=== PATIENT | female | born 1955 | race Caucasian/White ===

== ENCOUNTER 2016-08-03 09:53 | Observation (INO) | payer OTHER ==
[2016-08-03] VITALS (9 sets, daily range): BP systolic 109–188; BP diastolic 77–115; PULSE 75–113; RESP 18–20; TEMP 98–98.8; O2SAT 95–98
[~2016-08-03] VITALS: Ht 152.4 cm; Wt 52.0 kg
[~2016-08-03 09:53] MED LIST: ALPR-138 PO; ENAL20TA81; HYDR12.56; LORT5TAB PO; LOVA10TA
[2016-08-03] MEDS ORDERED: HYDR12.57 PO (10:11)
[2016-08-03] MEDS ORDERED: BENA40TA PO (10:11)
[2016-08-03] MEDS ORDERED: CHOLESTEROL MED PO (10:11)
[2016-08-03] MEDS ORDERED: ALPR.25 PO (10:11)
[2016-08-03] MEDS ORDERED: SODIUM CHLORIDE 0.9% FLUSH 5 ML FLUSH IVF PRN (10:15)
[2016-08-03] MEDS ORDERED: NITROGLYCERIN 0.4 MG SL 25 TABS/BTL SL ONE (10:15)
[2016-08-03] MEDS ORDERED: ASPIRIN 81 MG CHEW TAB PO ONE (10:15)
--- NOTE | 2016-08-03 10:34 | PD ---
HPI Chief Complaint: Chest Pain Time Seen by Provider: 09:59 Travel History International Travel<30 days: No Contact w/Intl Traveler<30days: No Traveled to known affect area: No History of Present Illness HPI 61-year-old woman who presents to the emergency department complaining of chest heaviness. States that for the past several days she's had chest tightness and heaviness. She had similar pain in her back before that occasionally radiated around to the chest but she's never had the pain in her chest. Symptoms were coming and going initially but have been constant throughout the day today. They are somewhat worse with exertion but not predictably. She states that she was helping an elderly neighbor over the weekend and was pushing her and thinks that this may have triggered it. No shortness of breath. She otherwise has been feeling well and healthy. She has a history of hypertension and hyperlipidemia. She does have a family history of heart disease. 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 History Past Medical History Narrative Medical Hypertension Hyperlipidemia Anxiety Tetanus Vaccination: Unknown Influenza Vaccination: Yes Menopausal: Yes Para: 3 Social History Alcohol Use: No Tobacco Use: No Allergies-Medications (Allergen,Severity, Reaction): Coded Allergies: No Known Allergies (Verified , 10/22/11) Reported Meds & Prescriptions Reported Meds & Active Scripts Active Reported [Cholesterol Med] 1 Tab PO HS Hydrochlorothiazide 12.5 Mg Cap 12.5 Mg PO DAILY Benazepril (Benazepril HCl) 40 Mg Tab 40 Mg PO DAILY Xanax (Alprazolam) 0.25 Mg Tab 0.25 Mg PO Q8H PRN Review of Systems Except as stated in HPI: all other systems reviewed are Neg Physical Exam Narrative GENERAL: Well-appearing 61-year-old woman, no acute distress. SKIN: Warm and dry. ENT: No nasal bleeding or discharge. Mucous membranes pink and moist. NECK: Trachea midline. No JVD. CARDIOVASCULAR: Regular rate and rhythm. No murmur appreciated. RESPIRATORY: No accessory muscle use. Clear to auscultation. Breath sounds equal bilaterally. CHEST: Minimal chest tenderness on the left side in the parasternal muscles. GASTROINTESTINAL: Abdomen soft, non-tender, nondistended. Hepatic and splenic margins not palpable. MUSCULOSKELETAL: No obvious deformities. No clubbing. No cyanosis. No edema. NEUROLOGICAL: Awake and alert. No obvious cranial nerve deficits. Motor grossly within normal limits. Normal speech. PSYCHIATRIC: Appropriate mood and affect; insight and judgment normal. Data Data Last Documented VS Vital Signs Date Time Temp Pulse Resp B/P Pulse Ox O2 Delivery O2 Flow Rate FiO2 08/03/16 11:01 81 18 135/83 97 Room Air 08/03/16 09:55 98.5 Orders Electrocardiogram (08/03/16 10:12) Complete Blood Count With Diff (08/03/16 10:12) Comprehensive Metabolic Panel (08/03/16 10:12) Magnesium (Mg) (08/03/16 10:12) Troponin I (08/03/16 10:12) Lipase (08/03/16 10:12) Ecg Monitoring (08/03/16 10:12) Iv Access Insert/Monitor (08/03/16 10:12) Oximetry (08/03/16 10:12) Oxygen Administration (08/03/16 10:12) Aspirin Chew (Aspirin Chew) (08/03/16 10:15) Sodium Chloride 0.9% Flush (Ns Flush) (08/03/16 10:15) Nitroglycerin Sl (Nitrostat Sl) (08/03/16 10:15) Chest, Pa & Lat (08/03/16 10:12) Admit Order (Ed Use Only) (08/03/16 ) Consult Cardiology (08/03/16 ) Labs Laboratory Tests Test 08/03/16 10:15 White Blood Count 4.7 TH/MM3 Red Blood Count 5.54 MIL/MM3 Hemoglobin 15.2 GM/DL Hematocrit 45.9 % Mean Corpuscular Volume 82.9 FL Mean Corpuscular Hemoglobin 27.4 PG Mean Corpuscular Hemoglobin 33.1 % Concent Red Cell Distribution Width 14.0 % Platelet Count 225 TH/MM3 Mean Platelet Volume 8.1 FL Neutrophils (%) (Auto) 56.0 % Lymphocytes (%) (Auto) 34.0 % Monocytes (%) (Auto) 8.7 % Eosinophils (%) (Auto) 0.8 % Basophils (%) (Auto) 0.5 % Neutrophils # (Auto) 2.6 TH/MM3 Lymphocytes # (Auto) 1.6 TH/MM3 Monocytes # (Auto) 0.4 TH/MM3 Eosinophils # (Auto) 0.0 TH/MM3 Basophils # (Auto) 0.0 TH/MM3 CBC Comment DIFF FINAL Differential Comment Sodium Level 138 MEQ/L Potassium Level 3.5 MEQ/L Chloride Level 99 MEQ/L Carbon Dioxide Level 29.4 MEQ/L Anion Gap 10 MEQ/L Blood Urea Nitrogen 14 MG/DL Creatinine 0.67 MG/DL Estimat Glomerular Filtration 89 ML/MIN Rate Random Glucose 103 MG/DL Calcium Level 9.6 MG/DL Magnesium Level 2.1 MG/DL Total Bilirubin 0.4 MG/DL Aspartate Amino Transf 19 U/L (AST/SGOT) Alanine Aminotransferase 49 U/L (ALT/SGPT) Alkaline Phosphatase 77 U/L Troponin I 0.07 NG/ML Total Protein 8.1 GM/DL Albumin 4.5 GM/DL Lipase 288 U/L [facility] Medical Decision Making Medical Screen Exam Complete: Yes Emergency Medical Condition: Yes Interpretation(s) My review of EKG: Sinus tachycardia rate 104, leftward axis, normal intervals, no acute ischemia. Differential Diagnosis Chest wall strain, ACS, PE, dissection, other Narrative Course Medical decision making INITIAL: A 61-year-old woman presents to the emergency department complaining of chest pain. Symptoms are constant, not clearly exertional. She has some tenderness in the chest wall does relate this to pushing a friend in a mobility aid. She looks well. She has had anxiety is anxious and took a Xanax this morning. She has has some risk factors for heart disease including age, high cholesterol, hypertension, and family history. We'll check labs, EKG, x-ray, reassess. Physician Communication Physician Communication Spoke with Dr. Perkins, will admit patient. Spoke with Dr. Ortiz, will consult on patient. Diagnosis Primary Impression: Chest pain Qualified Code: R07.9 - Chest pain, unspecified type Rolo Shaffer MD Aug 03, 2016 10:34
[2016-08-03 10:43] LABS: AUTOMATED NEUTROPHIL # 2.6 TH/MM3 (1.8-7.7); BASOPHIL % 0.5 % (0.0-2.0); EOSINOPHIL % 0.8 % (0.0-4.0); HEMATOCRIT 45.9 % (35.0-46.0); HEMO FLAGS DIFF FINAL; LYMPHOCYTE # 1.6 TH/MM3 (1.0-4.8); MEAN CELL VOLUME 82.9 FL (80.0-100.0); MEAN CORPUSCULAR HEMOGLOBIN 27.4 PG (27.0-34.0); MEAN CORPUSCULAR HGB CONC 33.1 % (32.0-36.0); MONO % 8.7 % (0.0-8.0); PLATELET COUNT 225 TH/MM3 (150-450); RED BLOOD COUNT 5.54 MIL/MM3 (4.00-5.30); WHITE BLOOD COUNT 4.7 TH/MM3 (4.0-11.0)
--- NOTE | 2016-08-03 10:59 | RADRPT ---
EXAM DATE/TIME: 08/03/2016 10:34 [place] COMPARISON: No previous studies available for comparison. INDICATIONS : Chest pain. MEDICAL HISTORY : None. SURGICAL HISTORY : None. ENCOUNTER: Initial ACUITY: 2 days PAIN SCORE: 8/10 LOCATION: Bilateral chest middle FINDINGS: PA and lateral views of the chest demonstrate the lungs to be symmetrically aerated without evidence of mass, infiltrate or effusion. The cardiomediastinal contours are unremarkable. Osseous structure s are intact. CONCLUSION: No acute disease. Benjamín Estrella MD FACR on August 03, 2016 at 10:57 Board Certified Radiologist. This report was verified electronically.
[2016-08-03 11:02] LABS: ALT (GPT) 49 U/L (10-53); ANION GAP 10 MEQ/L (5-15); AST (GOT) 19 U/L (15-37); BICARBONATE 29.4 MEQ/L (21.0-32.0); BLOOD UREA NITROGEN 14 MG/DL (7-18); CHLORIDE 99 MEQ/L (98-107); GLOMERULAR FILTRATION RATE 89 ML/MIN (>89); MAGNESIUM 2.1 MG/DL (1.5-2.5); POTASSIUM 3.5 MEQ/L (3.5-5.1); SODIUM (NA) 138 MEQ/L (136-145)
[2016-08-03 11:06] LABS: ALKALINE PHOSPHATASE 77 U/L (45-117); TOTAL BILIRUBIN ADULT 0.4 MG/DL (0.2-1.0)
[2016-08-03] MEDS ORDERED: SIMV20TA PO (16:27)
[2016-08-03] MEDS ORDERED: ACETAMINOPHEN 325 MG TAB PO PRN (16:30)
[2016-08-03] MEDS ORDERED: ONDANSETRON HCL 4 MG/2 ML VIAL IV PRN (16:30)
[2016-08-03] MEDS ORDERED: NITROGLYCERIN 0.4 MG SL 25 TABS/BTL SL PRN (16:30)
[2016-08-03] MEDS ORDERED: ALPRAZolam 0.25 MG TAB PO PRN (16:30)
[2016-08-03] MEDS ORDERED: MORPHINE SULFATE 4 MG/ML INJ IV PUSH PRN (16:30)
[2016-08-03] MEDS ORDERED: SODIUM CHLORIDE 0.9% FLUSH 5 ML FLUSH IV PRN (16:30)
--- NOTE | 2016-08-03 16:40 | HHI.HP ---
HPI Service [facility] Hospitalists Primary Care Physician Maria Alejandra Watt MD Admission Diagnosis Chest Pain, r/o [place] Chief Complaint: Chest pain Travel History International Travel<30 Days: No Contact w/Intl Traveler <30 Da: No Traveled to Known Affected Are: No History of Present Illness Pt is 61 yo female with htn/hyperlipidemia. Presents with intermittent cp over past 2 or 3 days. Says he is heavy/squeezing sensation anteriorly and at times wraps around her back. no n/v, diaphoresis. She noticed it worsened when walking up steps and relieved with rest. no association with food. no pleurisy. In ED it was relieved by ntg. It was the worsed this morning. Says her brother who is her age has a stent and father around 69 from heart attack. Review of Systems Cardiovascular: COMPLAINS OF: Chest pain Other interment cp mostly exertional Past Family Social History Past Medical History HTN Hyperlipidemia PVD Sciatica Cataracts Anxiety Past Surgical History None reported Reported Medications Simvastatin 20 Mg Tab 20 Mg PO HS Hydrochlorothiazide 12.5 Mg Cap 12.5 Mg PO DAILY Benazepril (Benazepril HCl) 40 Mg Tab 40 Mg PO DAILY Xanax (Alprazolam) 0.25 Mg Tab 0.25 Mg PO Q8H PRN Allergies: Coded Allergies: Amoxicillin (Verified Allergy, Severe, 08/04/16) SAYS HER THROAT CLOSES Family History Father with hx of CAD, at age 69 from [place] Brother and sister with HTN Social History Denies any alcohol, tobacco or illicit drug use Physical Exam Vital Signs nad heart reg lung cta abd s/nt ext no edema Vital Signs Date Time Temp Pulse Resp B/P Pulse Ox O2 Delivery O2 Flow Rate FiO2 08/03/16 13:42 84 18 144/90 96 Room Air 08/03/16 11:01 81 18 135/83 97 Room Air 08/03/16 10:16 97 Room Air 08/03/16 10:16 97 Room Air 08/03/16 10:06 100 20 168/98 97 Room Air 08/03/16 09:59 98 08/03/16 09:55 98.5 113 20 188/115 95 Laboratory Laboratory Tests Test 08/03/16 10:15 White Blood Count 4.7 Red Blood Count 5.54 Hemoglobin 15.2 Hematocrit 45.9 Mean Corpuscular Volume 82.9 Mean Corpuscular Hemoglobin 27.4 Mean Corpuscular Hemoglobin 33.1 Concent Red Cell Distribution Width 14.0 Platelet Count 225 Mean Platelet Volume 8.1 Neutrophils (%) (Auto) 56.0 Lymphocytes (%) (Auto) 34.0 Monocytes (%) (Auto) 8.7 Eosinophils (%) (Auto) 0.8 Basophils (%) (Auto) 0.5 Neutrophils # (Auto) 2.6 Lymphocytes # (Auto) 1.6 Monocytes # (Auto) 0.4 Eosinophils # (Auto) 0.0 Basophils # (Auto) 0.0 CBC Comment DIFF FINAL Differential Comment Sodium Level 138 Potassium Level 3.5 Chloride Level 99 Carbon Dioxide Level 29.4 Anion Gap 10 Blood Urea Nitrogen 14 Creatinine 0.67 Estimat Glomerular Filtration 89 Rate Random Glucose 103 Calcium Level 9.6 Magnesium Level 2.1 Total Bilirubin 0.4 Aspartate Amino Transf 19 (AST/SGOT) Alanine Aminotransferase 49 (ALT/SGPT) Alkaline Phosphatase 77 Troponin I 0.07 Total Protein 8.1 Albumin 4.5 Lipase 288 Result Diagram: 08/03/16 1015 08/03/16 1015 Imaging Last Impressions Chest X-Ray 08/03/16 1012 Signed Impressions: Service Date/Time: Wednesday, August 03, 2016 10:34 - CONCLUSION: No acute disease. Bejnamín Estrella MD FACR Septic Shock Reassessment Heart: Regular rate and rhythm Lungs: Clear Skin: Warm Peripheral Pulses: Bounding Right Radial Bounding Left Radial Bounding Right Popliteal Bounding Left Popliteal Bounding Right Dorsalis Pedis Bounding Left Dorsalis Pedis Bounding Right Posterior Tibial Bounding Left Posterior Tibial Capillary Refill: <2 seconds Assessment and Plan Problem List: (1) Chest pain Status: Acute Plan: Pt is 61 yo presents with 2-3 days intermittent cp. sometimes worsened with exertion and relieved with rest. relieved with ntg today and now troponins trending up concerning for nstemi. discussed with dr Ortiz npo after [place] for [facility] asa. statin. add bb and cont margo ntg paste dose lovenox now cont telemetry. prn ativan ordered. pt very anxious. (2) HTN (hypertension) Status: Chronic Plan: home meds (3) Hyperlipidemia Status: Chronic Assessment and Plan Patient examined. Assessment and plan formulated with Vianca Polk PA-C. I agree with the above. s./p stenting. doing well. d/c. Problem Qualifiers (1) Chest pain: Qualified Code: R07.9 - Chest pain, unspecified type Vianca Arora Aug 03, 2016 16:39 Jorge Luis Perkins MD Aug 03, 2016 19:46
--- NOTE | 2016-08-03 17:02 | EKG ---
Date Performed: 08/03/2016 Time Performed: 10:01:16 PTAGE: 61 years EKG: SINUS TACHYCARDIA Compared to prior tracing no significant change ABNORMAL RHYTHM ECG PREVIOUS TRACING : 10/22/2011 21.04 DOCTOR: Antwon Greenberg Interpretating Date/Time 08/03/2016 17:00:48
[2016-08-03 17:54] LABS: CKMB 5.1 NG/ML (0.5-3.6)
[2016-08-03] MEDS ORDERED: NITROGLYCERIN 2% OINT 1 GM PACKET TOPICAL ONE (18:30)
[2016-08-03] MEDS ORDERED: ALPRAZolam 0.5 MG TAB PO PRN (18:45)
[2016-08-03] MEDS: LORazepam 0.5 MG TAB PO PRN (19:59)
[2016-08-03] MEDS ORDERED: ENOXAPARIN SODIUM 60 MG/0.6 ML SYRINGE SQ ONE (20:00)
[2016-08-03] MEDS: METOPROLOL TARTRATE 25 MG TAB PO SCH (20:49)
[2016-08-03] MEDS: SODIUM CHLORIDE 0.9% FLUSH 5 ML FLUSH IV SCH (20:51)
[2016-08-03] MEDS ORDERED: PRAVASTATIN SOD 40 MG TAB PO SCH (21:00)
[2016-08-03] MEDS ORDERED: TEMAZEPAM 15 MG CAP PO ONE (21:30)
[2016-08-04] MEDS: NITROGLYCERIN 2% OINT 1 GM PACKET TOPICAL SCH ×3 (00:03→11:42)
[2016-08-04] MEDS ORDERED: SODIUM CHLOR 0.9% 1000 ML INJ 1,000 ML IV SCH (05:00)
[2016-08-04 06:45] VITALS: BP 132/68; PULSE 77; RESP 21; TEMP 98; O2SAT 98
[2016-08-04 07:20] VITALS: PULSE 89
[2016-08-04 07:42] VITALS: BP 132/85; PULSE 85; RESP 17; TEMP 98.2; O2SAT 96
[2016-08-04 08:09] LABS: HDL CHOLESTEROL 57.2 MG/DL (40.0-60.0)
[2016-08-04] MEDS: SODIUM CHLORIDE 0.9% FLUSH 5 ML FLUSH IV SCH (08:40)
[2016-08-04] MEDS: METOPROLOL TARTRATE 25 MG TAB PO SCH (08:41)
[2016-08-04] MEDS: LORazepam 0.5 MG TAB PO PRN (08:41)
[2016-08-04] MEDS ORDERED: LISINOPRIL 20 MG TAB PO SCH ×2 (09:00)
[2016-08-04] MEDS ORDERED: ASPIRIN 325 MG TAB PO SCH (09:00)
[2016-08-04 11:30] VITALS: BP 113/76; PULSE 79; RESP 18; TEMP 97.7; O2SAT 94
--- NOTE | 2016-08-04 11:39 | MB ---
cc: JAVIER ORTIZ MD DATE OF CONSULTATION 08/04/2016 HISTORY OF PRESENT ILLNESS This is a 61-year-old woman who has a history of high blood pressure and hyperlipidemia who presents with chest discomfort. This started on Wednesday with back pain with radiation into her chest. She previously had just some back pain but no chest pain had been present until Wednesday. This was described as a heavy or squeezing sensation. This was relieved spontaneously. No further episodes occurred until Wednesday when she again had it while walking up steps at work. It was relieved with rest and associated with some shortness of breath. She called the office and was instructed to come to the hospital. Since her admission to the hospital her electrocardiogram has shown T-wave inversion across the anterior precordium. Troponins have elevated from 0.07 to 1.12. Chest x-ray is normal and lab is otherwise unremarkable. PAST MEDICAL HISTORY Otherwise has been unremarkable. CURRENT MEDICATIONS 1. Simvastatin 20 mg daily. 2. Hydrochlorothiazide 12.5 daily. 3. Benazepril 40 mg daily. 4. Xanax as needed. ALLERGIES ALLERGY TO AN ANTIBIOTIC which she cannot recall the name of. FAMILY HISTORY The family history is significant for a father who at 69 from myocardial infarction and a brother who has also had a stent. SOCIAL HISTORY The patient does not smoke, drink or use recreational drugs. PHYSICAL EXAMINATION GENERAL: On physical exam she is awake and alert, in no acute distress. VITAL SIGNS: Her blood pressure is 130/68, pulse is 70 and regular. NECK: There is no neck vein distension. LUNGS: Clear. CARDIOVASCULAR: Exam reveals a regular rate and rhythm. There is no murmur or gallop noted. ABDOMEN: Soft. There is no tenderness or organomegaly. EXTREMITIES: Reveal no edema. ASSESSMENT The patient has evidence for unstable angina. PLAN We will plan cardiac catheterization for this afternoon. She has been started on nitroglycerin paste and a small dose of metoprolol. We will also institute daily aspirin for her as well. Javier Ortiz MD DLW/SSB /7:38 AM /11:29 AM
--- NOTE | 2016-08-04 11:46 | HHI.PR ---
Subjective Remarks Pt going for [facility] this afternoon with Dr. Ortiz No complaints of chest pain currently. No nausea/vomiting Objective Vitals Vital Signs Date Time Temp Pulse Resp B/P Pulse Ox O2 Delivery O2 Flow Rate FiO2 08/04/16 11:30 97.7 79 18 113/76 94 08/04/16 07:42 98.2 85 17 132/85 96 08/04/16 07:20 89 08/04/16 06:45 98.0 77 21 132/68 98 08/03/16 23:09 98.0 75 18 109/77 98 08/03/16 21:00 78 08/03/16 19:18 98.8 91 18 160/102 97 08/03/16 16:48 82 18 145/92 97 Room Air 08/03/16 13:42 84 18 144/90 96 Room Air 08/03/16 08/03/16 08/04/16 15:00 23:00 07:00 Intake Total 0 ml Balance 0 ml Intake Oral 0 ml # Voids 2 Result Diagram: 08/03/16 1015 08/03/16 1015 Other Results Laboratory Tests Test 08/03/16 08/03/16 08/03/16 08/04/16 10:15 16:44 22:29 06:19 White Blood Count 4.7 TH/MM3 Red Blood Count 5.54 MIL/MM3 Hemoglobin 15.2 GM/DL Hematocrit 45.9 % Mean Corpuscular Volume 82.9 FL Mean Corpuscular Hemoglobin 27.4 PG Mean Corpuscular Hemoglobin 33.1 % Concent Red Cell Distribution Width 14.0 % Platelet Count 225 TH/MM3 Mean Platelet Volume 8.1 FL Neutrophils (%) (Auto) 56.0 % Lymphocytes (%) (Auto) 34.0 % Monocytes (%) (Auto) 8.7 % Eosinophils (%) (Auto) 0.8 % Basophils (%) (Auto) 0.5 % Neutrophils # (Auto) 2.6 TH/MM3 Lymphocytes # (Auto) 1.6 TH/MM3 Monocytes # (Auto) 0.4 TH/MM3 Eosinophils # (Auto) 0.0 TH/MM3 Basophils # (Auto) 0.0 TH/MM3 CBC Comment DIFF FINAL Differential Comment Sodium Level 138 MEQ/L Potassium Level 3.5 MEQ/L Chloride Level 99 MEQ/L Carbon Dioxide Level 29.4 MEQ/L Anion Gap 10 MEQ/L Blood Urea Nitrogen 14 MG/DL Creatinine 0.67 MG/DL Estimat Glomerular Filtration 89 ML/MIN Rate Random Glucose 103 MG/DL Calcium Level 9.6 MG/DL Magnesium Level 2.1 MG/DL Total Bilirubin 0.4 MG/DL Aspartate Amino Transf 19 U/L (AST/SGOT) Alanine Aminotransferase 49 U/L (ALT/SGPT) Alkaline Phosphatase 77 U/L Troponin I 0.07 NG/ML 0.99 NG/ML 1.12 NG/ML Total Protein 8.1 GM/DL Albumin 4.5 GM/DL Lipase 288 U/L Total Creatine Kinase 221 U/L 145 U/L Creatine Kinase MB 5.1 NG/ML Creatine Kinase MB % 2.3 % Triglycerides Level 176 MG/DL Cholesterol Level 209 MG/DL LDL Cholesterol 117 MG/DL HDL Cholesterol 57.2 MG/DL Cholesterol/HDL Ratio 3.65 RATIO Imaging Last Impressions Chest X-Ray 08/03/16 1012 Signed Impressions: Service Date/Time: Wednesday, August 03, 2016 10:34 - CONCLUSION: No acute disease. Benjamín Estrella MD FACR Objective Remarks General: NAD< AAOx3 Chest: CTA bilaterally Cardiac: Regular Abd: +BS, soft ND/NT Ext: No edema A/P Problem List: (1) Chest pain Status: Acute Plan: - Pt presented with 2-3 days intermittent chest pain, sometimes worsened with exertion and relieved with rest. - Her CP was relieved with NTG - Pts CE elevated concerning for NSTEMI - The case was discussed between Dr Ortiz and Dr. Perkins on 08/03 and pt is planned for [facility] today - Cont. ASA/statin/ BB/ TIRSO. - NTG paste - Lovenox given on 08/03 - Telemetry. - prn Ativan (2) HTN (hypertension) Status: Chronic Plan: - Cont. home meds (3) Hyperlipidemia Status: Chronic Plan: - Cont. home meds Problem Qualifiers (1) Chest pain: Qualified Code: R07.9 - Chest pain, unspecified type Vianca Arora Aug 04, 2016 11:46
[2016-08-04] MEDS ORDERED: HEPARIN-NS/PF INJ 500 ML ONE (12:01)
[2016-08-04] MEDS ORDERED: MIDAZOLAM HCL 2 MG/2 ML VIAL ONE (12:04)
[2016-08-04] MEDS ORDERED: HEPARIN SODIUM - IV 10,000 UNITS/10 ML VIAL ONE (12:04)
[2016-08-04] MEDS ORDERED: CLOPIDOGREL 300 MG TAB ONE (12:44)
[2016-08-04] MEDS ORDERED: IOHEXOL 350 MG/ML 100 ML BTL (for Cath Lab) OTHER ONE (12:55)
[2016-08-04] MEDS ORDERED: SODIUM CHLORIDE 0.9% FLUSH 5 ML FLUSH IVF PRN (13:00)
[2016-08-04] MEDS ORDERED: MISC INFORMATION XX ONE (13:00)
--- NOTE | 2016-08-04 13:23 | MA ---
cc: FUNMI CALZADA MD DATE: 08/04/2016 PROCEDURE Cardiac catheterization and percutaneous coronary intervention. DETAILS OF PROCEDURE The patient was prepped and draped in the usual fashion. A 6 sheath was inserted percutaneously into the right femoral artery. Coronary angiography was done with Vivienne preformed catheters. Left ventriculography was done with a pigtail catheter after PCI was completed. RESULTS HEMODYNAMICS Aortic pressure was 125/70. Left ventricular end-diastolic pressure was 12. There was no gradient across the aortic valve. CORONARY ARTERIOGRAPHY The left main coronary was normal. The left anterior descending artery demonstrated a high-grade complex stenosis in its very proximal portion compromising the lumen by approximately 90%. Just distal to the first diagonal branch a second 90% stenosis was present. The remainder of the artery was free from discrete disease, although it did appear to be somewhat diffusely diseased and actually a very small caliber artery. The circumflex arose from the left main. A 40-50% stenosis was present in its proximal portion. No other significant lesions were seen. The right coronary was anatomically dominant. It also was a very small artery, but no significant stenoses were seen throughout. LEFT VENTRICULOGRAPHY Left ventriculography demonstrated a normal size left ventricle with anteroapical hypokinesis. Overall ejection fraction was estimated at approximately 45%. No mitral regurgitation was present. The aortic outflow track appeared normal. PERCUTANEOUS CORONARY INTERVENTION Following consent an XB LAD 3.5 guide was used and a [employer] wire was advanced into the distal LAD. Primary stenting of the mid lesion was carried out with a 12 x 2.25 mm bare metal stent with a very good cosmetic result. That catheter was then withdrawn and the proximal lesion was stented with a 2.25 x 18 mm bare metal stent. EDDY-III flow was present both pre and post procedure. No evidence for thrombus or dissection was present. At the end of the procedure the groin was sealed with Angio-Seal technique. CONCLUSIONS 1. Successful PTCA and stenting of mid and proximal LAD. 2. 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 MD LORENZA Bray/SAMY /12:57 PM /1:14 PM
[2016-08-04] MEDS ORDERED: PLAV75TA29 PO (13:43)
[2016-08-04] MEDS ORDERED: METO25TA3 PO (13:43)
--- NOTE | 2016-08-04 14:54 | HHI.DCPOC ---
Discharge Care Plan Diagnosis: (1) Chest pain (2) Hyperlipidemia (3) HTN (hypertension) (4) CAD (coronary artery disease) Goals to Promote Your Health * To prevent worsening of your condition and complications * To maintain your health at the optimal level Directions to Meet Your Goals Take your medications as prescribed Follow your dietary instruction Follow activity as directed Keep your appointments as scheduled Take your immunizations and boosters as scheduled If your symptoms worsen call your PCP, if no PCP go to Urgent Care Center or Emergency Room Smoking is Dangerous to Your Health. Avoid second hand smoke Call the 24-hour hour crisis hotline for domestic abuse at Vianca Arora Aug 04, 2016 14:53
--- NOTE | 2016-08-04 16:29 | EKG ---
Date Performed: 08/03/2016 Time Performed: 22:25:50 PTAGE: 61 years EKG: Sinus rhythm MARKED T-WAVE ABNORMALITY, CONSIDER ANTEROLATERAL ISCHEMIA Since previous tracing, no significant ch hilda noted ABNORMAL ECG PREVIOUS TRACING : 08/03/2016 16.41 DOCTOR: Isa Bah Interpretating Date/Time 08/04/2016 16:28:49
--- NOTE | 2016-08-04 16:29 | EKG ---
Date Performed: 08/03/2016 Time Performed: 16:41:29 PTAGE: 61 years EKG: Sinus rhythm MARKED LEFT AXIS DEVIATION POSSIBLE INFERIOR MYOCARDIAL INFARCTION MARKED T-WAVE ABNORMALITY, CONSID ER ANTEROLATERAL ISCHEMIA When compared to previous tracing, the patient now has inverted Anterior T waves. Clinical correlation is suggested. ABNORMAL ECG PREVIOUS TRACING : 08/03/2016 10.01 DOCTOR: Isa Bah Interpretating Date/Time 08/04/2016 16:29:52
[2016-08-04] MEDS ORDERED: SODIUM CHLORIDE 0.9% FLUSH 5 ML FLUSH IVF SCH (21:00)
[2016-08-05] MEDS ORDERED: CLOPIDOGREL 75 MG TAB PO SCH (09:00)
== END 2016-08-04 16:43 | disposition home or self-care (01) ==
LOC: NEPA 09:53 → NEDA 11:52 → INTOOBSV 11:52 → NEPHCDU 17:09
PROVIDERS: ADMIT Hospitalist; ATTEND Hospitalist
DX: I25.10 Atherosclerotic heart disease of native coronary artery without angina pectoris (principal); I10 Essential (primary) hypertension; E78.5 Hyperlipidemia, unspecified; R94.31 Abnormal electrocardiogram [ECG] [EKG]; I73.9 Peripheral vascular disease, unspecified; Z82.49 Family history of ischemic heart disease and other diseases of the circulatory system
CPT/HCPCS: 71020; 80053; 80061; 82550; 82552; 83690; 83735; 84484; 85002; 85025; 92928; 93005; 93458; 99285; C1760; C1769; C1876; C1887; C1893; G0269; G0378; J1644; J1650; J2250; J7030; Q9967

== ENCOUNTER 2016-11-16 07:29 | Day surgery (SDC) | payer OTHER ==
[~2016-11-16] VITALS: Ht 152.4 cm; Wt 48.8 kg
[~2016-11-16 07:29] MED LIST changes: -ALPR-138 PO; +ALPR.25 PO; +BENA40TA PO; -ENAL20TA81; -HYDR12.56; +HYDR12.57 PO; -LORT5TAB PO; -LOVA10TA; +METO25TA3 PO; +PLAV75TA29 PO; +SIMV20TA PO
[2016-11-16 08:34] VITALS: BP 155/86; PULSE 70; RESP 16; TEMP 98.2; O2SAT 95
[2016-11-16] MEDS ORDERED: ASPI1TAB69 PO (08:43)
[2016-11-16] MEDS ORDERED: CALC1TAB87 PO (08:43)
[2016-11-16] MEDS ORDERED: ATOR40TA16 PO (08:43)
[2016-11-16] MEDS ORDERED: NITR1SUB3 SL (08:43)
[2016-11-16] MEDS ORDERED: magnesium PO (08:43)
[2016-11-16] MEDS ORDERED: HEPARIN-NS/PF INJ 500 ML ONE (09:17)
[2016-11-16] MEDS ORDERED: MIDAZOLAM HCL 2 MG/2 ML VIAL ONE (09:19)
[2016-11-16] MEDS ORDERED: HEPARIN SODIUM - IV 10,000 UNITS/10 ML VIAL ONE (09:48)
[2016-11-16] MEDS ORDERED: NITROGLYCERIN 400 MCG/SPRAY 4.9 GM BOTTLE SL ONE (10:16)
[2016-11-16] MEDS ORDERED: MISC INFORMATION XX ONE (10:45)
--- NOTE | 2016-11-16 11:00 | CATHPROC ---
[employer] HIS Report Study Information Study Number Admission Scheduled Start Study Start [id number] 11/16/2016 11/16/2016 Nov 16 2016 9:09AM Referring Institution Admit Source Facility Department 1 Other [facility] - [facility] Physician and Clinical Staff Initial Javier Houser Brazing Furnace Feeder Tanvi Bolanos,RN Recorder Mary Waller,VETERANS SERVICES SPECIALIST TECH2 Scrub Daisy Herrera,ADMINISTRATIVE SUPPORT [employer]OC TECH2 Scrub Benjamín Lerma RN Procedures Performed Procedure Location (Site) Vessel Name Angiogram LV LV Ventricle Coronary Angiograms LCA Left Coronary Coronary Angiograms RCA Right Coronary Drug Eluting Inflatio LAD Mid Left Coronary Drug Eluting Inflatio LAD Prox Left Coronary PTCA LAD Mid Left Coronary PTCA LAD Prox Left Coronary Wire insertion Fem Art (right) Femoral Art Equipment Time Shop Hand Description Size Mfg Part Number Used/Scraped 09:50 [employer] CRITICAL CARE WIRE, [place] PROWATER 180CM 180CM [id number] Used TRANSDUCER, TRUWAVE 09:41 SOTELO BOLANOS * [id number] Used W/STOCKCOCK BALLOON, 2.25 X 15MM [id number] 10:05 [employer] 2.25 15MM Used FLEXTOME CUTTING *[id number] BALLOON, 2.25 6MM FLEXTOME [id number] 10:09 [employer] 2.25 6MM Used CUTTING *[id number] 534-620T *[id number] 534-621T *[id number] [id number] *[id number] 10:32 DAIG/ST. HASEE[employer] MEDICAL ANGIOSEAL, FR6 VIP FR 6 [id number] Used 09:50 MALLINCKRODT SYRINGE, ANGIOMAT 150ML 150ML [id number] Used [id number] 09:41 [employer] PACK, CCL CUSTOM * Used *[id number] 09:41 [email or web address] PACER PEN, SKIN DUAL W/ RULER * [id number] Used [id number] 09:58 MEDTRONIC BALLOON, 2.5 X 12MM EUPHORA 12MM Used *[id number] 10:02 [employer] BALLOON, 2.5 X 15MM EUPHORA 15MM Used *[id number] 10:22 [employer] BALLOON, 3.0 X 15MM EUPHORA 15MM Used *[id number] BALLOON, 3.0 X 15MM NC [id number] 10:25 [employer]TRONIC 15MM Used EUPHORA *[id number] STENT, 2.25 12 RESOLUTE [id number] 10:18 MEDTRONIC 2.25 12 Used INTEGRITY RX *[id number] STENT, 3.0 9 RESOLUTE [id number] 10:31 MEDTRONIC 3.0 9 Used INTEGRITY RX *[id number] 09:57 [employer] MEDICAL 30 MICHEL INDEFLATOR Used *[id number] 09:41 [employer] MEDICAL SHEATH, FR6.5 PRELUDE 11CM FR 6.5 038ACT Used *[id number] 09:41 [employer] MEDICAL WIRE, 3MMJ .035 180CM 180CM [id number] Used [id number] 09:41 NAMIC MANIFOLD, 4 PORT * Used *[id number] 09:40 [employer] OMNIPAQUE, 350 MG, 100ML 100ML [id number] Used 09:41 [employer] OMNIPAQUE, 350 MG, 100ML 100ML [id number] Used 09:47 [employer]ED OMNIPAQUE, 350 MG, 50ML 50ML [id number] Used [id number] 09:41 [facility],WARM AIR CCL * Used *[id number] Equipment Model, Serial, Lot Number and Expiration Data Description Model Number Serial Number Lot Number Expiration Date ANGIOSEAL, FR6 VIP [id number] 09-08-2017 BALLOON, 2.25 X 15MM FLEXTOME [id number] 11-18-2017 CUTTING BALLOON, 2.25 6MM FLEXTOME [id number] 07-16-2019 CUTTING STENT, 2.25 12 RESOLUTE [id number] 03-14-2018 INTEGRITY RX STENT, 3.0 9 RESOLUTE [id number] 08-01-2018 INTEGRITY RX History: Current Medications Medication Dosage/Unit Route Frequency Last Date/Time Taken Xanax PLAVIX HCTZ LOPRESSOR ASA NTG SL Statins (any) History: Allergies Allergy Reaction Amoxicillin History: Risk Factors Hypertension Dyslipidemia Previous NV Previous Heart Failure Yes Yes Yes No Prior Valve Prior PCI Prior PCIDate Prior CABG Surgery No Yes 07/12/2016 No Cerebrovascular Peripheral Artery Chronic Lung On Dialysis Diabetes Disease Disease Disease No No Yes No No History: Symptoms/Diagnosis Selection Items Chest pain History: Stress Tests Stress or Imaging Studies Performed Yes Standard Exercise Stress Test No Stress Echo No Stress Test SPECT Stress Test SPECT Result Stress Test SPECT Ischemia Risk/Extent Yes Positive Intermediate Stress Test CMR No Cardiac CTA Coronary Calcium Score No No History: Other Current Smoker No Labs Hgb (g/dl) Hct (%) WBC (l/cumm) Platelets (thousands) 12.00-18.00 37.00-55.00 4.80-10.80 140.00-450.00 14.4 44.3 3.2 217 Glucose (mg/dl) BUN (mg/dl) Creatinine (mg/dl) BUN:Creatinine (1:x) 60.00-110.00 8.00-20.00 0.10-9.00 10.00-20.00 61 16 0.6 26.7 Na (meq/l) K (meq/l) Cl (meq/l) Ca (mg/dl) 138.00-146.00 3.80-5.10 101.00-111.00 9.00-10.50 144 3.8 99 9.9 PTT (sec) INR (PTT:PT) 25.10-32.70 0.50-2.00 11.2 1 CPK-MB (ng/ML) 0.00-7.00 Not Drawn Medication Medication Total Dose (Bolus/Oral) Medication Total Dosage/Unit 1% XYLOCAINE 20 mL HEPARIN 3000 units NITROGLYCERIN S/L 0.8 mg VERSED 2 mg Medications (Bolus/Oral) Medication Time Given Dosage/Unit Administered By Reason VERSED 11/16/2016 9:30:41 AM 2 mg Tanvi Bolanos Patient arrived on 2 mg VERSED given by Tanvi Bolanos, KIRILL in Left Forearm via Peripheral IV. Orde red by Javier Ortiz. 1% XYLOCAINE 11/16/2016 9:34:05 AM 20 mL Javier Ortiz 20 mL 1% XYLOCAINE given in lab by Javier Ortiz in Right Groin via Subcutaneous. Ordered by Javier Stanford ms. HEPARIN 11/16/2016 9:49:21 AM 3000 units Javier Ortiz 3000 units HEPARIN given in lab by Javier Ortiz in Left Forearm via Peripheral IV. Ordered by Javier Cox. NITROGLYCERIN S/L 11/16/2016 10:17:11 AM 0.8 mg Tanvi Bolanos 0.8 mg NITROGLYCERIN S/L given in lab by Tanvi Bolanos, RN via Sublingual. Ordered by Amairani Ortiz. Medication (Drip) Medication Time Given Dosage/Unit Concentration/Unit Diluent (ml) Solution IV Solutions 11/16/2016 9:11:33 AM 0 mL (IV) 500 NaCl .9 Patient arrived on IV Solutions given by Tanvi Bolanos RN in Left Forearm via Peripheral IV. Pum p/Drip Flow = 20 ml/hr using NaCl .9. Initial Case Assessment Cardiovascular HR Rhythm NIBP Chest Pain 75 sr 176/92 0 Circulatory - Right Pulses Dorsalis Pedis Femoral 2 2 Scale (0,1,2,3,4,d) Circulatory - Left Pulses Dorsalis Pedis Femoral 2 2 Scale (0,1,2,3,4,d) Neurological State Oriented to time-place- Alert Moves all extremities person Respiration - General Respiration Rate SpO2 (%) (B/min) 20 98 Final Case Assessment Cardiovascular HR Rhythm NIBP Chest Pain 74 sr 176/92 0 Circulatory - Right Pulses Dorsalis Pedis Femoral 2 2 Scale (0,1,2,3,4,d) Circulatory - Left Pulses Dorsalis Pedis Femoral 2 2 Scale (0,1,2,3,4,d) Neurological State Oriented to time-place- Alert Moves all extremities person Respiration - General Respiration Rate SpO2 (%) (B/min) 13 95 Chronological Log Time Study Chronological Log 9:11:08 Patient arrived via Bed. 9:11:09 Patient Name, D.O.B, / Armband Verified By R.N. 9:11:10 Consent signed by the physician and the patient and verified by the [employer] [facility] staff. 9:11:11 Pre-op and post- op instructions given; patient acknowledges understanding of instructions. 9:11:12 Verbal Stimulation=2 Physical Stimulation=2 Airway=2 Respiration=2 TOTAL=8. (0=absent, 1=lopez ited, 2=present) 9:11:14 Presedation assessment performed by Retail [employer] RN. 9:11:18 Patient has been NPO for More than 6Hrs. 9:11:20 Skin Breakdown-none 9:11:21 Charla Prominences Protected 9:11:31 A # 20 IV was noted in the Forearm (left). Grade = patent Patient arrived on IV Solutions given by Tanvi Bolanos RN in Left Forearm via Peripheral IV . Pump/Drip Flow = 9:11:33 20 ml/hr using NaCl .9. 9:11:34 History and physical on the chart or being dictated. 9:13:56 NIBP STAT measurement started. 9:14:56 HR=74 bpm, ALCZ=661/92 mmhg, SpO2=99.0 %, Resp=20 B/min, Pain=0, Bailey=10, Michaels=2 9:18:20 Reference ECG taken Assessment: Initial Case, HR=75 BPM, Rhythm=sr, ALPQ=256/92 mmhg, Chest Pain=0 Right Pulses: Jason Ped=2, Femoral=2 9:19:03 Left Pulses: Jason Ped=2, Femoral=2 Neurological: State=Alert, Ox3, MICHELLE Respiration: Resp=20 B/min, SpO2=98 % 9:19:35 Bilateral groins prepped with 2% chlorhexidine, and draped after a 3 min. waiting time. 9:24:07 Pressure channel 1 zeroed. 9:25:27 MD paged 9:25:28 MD responded 9:28:36 MD arrived. Patient arrived on 2 mg VERSED given by Tanvi Bolanos RN in Left Forearm via Peripheral IV. Ordered by 9:30:41 Javier Ortiz. Time Out. Correct patient, correct procedure,correct physician, power injector not loaded with c ontrast with surgical 9:33:29 team present. Time Out Concurred by MD and individual staff in procedure 9:34:03 Case Start 9:34:05 20 mL 1% XYLOCAINE given in lab by Javier Ortiz in Right Groin via Subcutaneous. Ordered by Javier Ortiz. 9:39:14 Access site was Right Femoral Artery. 9:39:33 A SHEATH, FR6.5 PRELUDE 11CM FR 6.5 was advanced into the Fem Art (right) using the Percutan eous technique. A JL 4.0 INFINITI CATHETER FR 6 was advanced over a wire. OMNIPAQUE, 350 MG, 100ML 100ML was use d for 9:40:05 injections. Recorded Pressure: Ao, HR=70, Condition=Condition 1 9:40:40 (Aorta) Ao 163/74/109 9:42:10 The LCA was injected and visualized at various angles. OMNIPAQUE, 350 MG, 100ML 100ML used. 9:42:43 Catheter was removed A JR 4.0 INFINITI CATHETER FR 6 was advanced over a wire. OMNIPAQUE, 350 MG, 100ML 100ML was use d for 9:42:44 injections. 9:43:43 The RCA was injected and visualized at various angles. OMNIPAQUE, 350 MG, 100ML 100ML used. 9:44:26 Catheter was removed A PIGTAIL STR INFINITI CATHETER FR 6 was advanced over a wire. OMNIPAQUE, 350 MG, 100ML 100ML wa s used for 9:45:01 injections. Recorded Pressure: LV, HR=71, Condition=Condition 1 9:45:31 (Left Ventricle) LV 153/3/10 9:46:46 The LV was injected at 11 cc/sec for a total of 30. OMNIPAQUE, 350 MG, 50ML 50ML used. Recorded Pressure: LV, Ao, HR=85, Condition=Condition 1 9:47:09 (Left Ventricle) LV 160/24/8, (Aorta) Ao 159/58/107 9:47:34 Catheter was removed 9:49:21 3000 units HEPARIN given in lab by Javier Ortiz in Left Forearm via Peripheral IV. Ordere d by Javier Ortiz. A XBLAD 3.5 SH GUIDE CATHETER FR 6 was advanced over a wire. OMNIPAQUE, 350 MG, 100ML 100ML was used for 9:52:49 injections. 9:53:33 A WIRE, ASAHI PROWATER 180CM 180CM was inserted via Fem Art (right). 9:53:42 Interventional wire has crossed the lesion 9:56:23 Activated Clotting Time Drawn 9:56:31 A BALLOON, 2.5 X 12MM EUPHORA 12MM was inserted over WIRE, ASAHI PROWATER 180CM 180CM via th e LAD Prox. A BALLOON, 2.5 X 12MM EUPHORA 12MM over a WIRE, ASAHI PROWATER 180CM 180CM in the LAD Prox was inflated 9:57:05 using a 30 MICHEL INDEFLATOR at 8 michel for 30 sec. 9:58:52 Balloon Removed. 10:00:31 A BALLOON, 2.5 X 15MM EUPHORA 15MM was inserted over WIRE, ASAHI PROWATER 180CM 180CM via t he LAD Prox. 10:00:51 ACT (Normal Range 90-180) = 245 10:02:40 Balloon shifted when inflated. Balloon Removed. A BALLOON, 2.25 X 15MM FLEXTOME CUTTING 2.25 15MM was inserted over WIRE, ASAHI PROWATER 180CM 180CM 10:04:50 via the LAD Prox. A BALLOON, 2.25 X 15MM FLEXTOME CUTTING 2.25 15MM over a WIRE, ASAHI PROWATER 180CM 180CM in th e LAD 10:05:59 Prox was inflated using a 30 MICHEL INDEFLATOR at 12 michel for 25 sec. 10:08:02 Balloon Removed. A BALLOON, 2.25 6MM FLEXTOME CUTTING 2.25 6MM was inserted over WIRE, ASAHI PROWATER 180CM 180C M via 10:10:00 the LAD Mid. A BALLOON, 2.25 6MM FLEXTOME CUTTING 2.25 6MM over a WIRE, ASAHI PROWATER 180CM 180CM in the LA D Mid 10:10:53 was inflated using a 30 MICHEL INDEFLATOR at 6 michel for 35 sec. 10:12:02 Balloon Removed. 10:13:45 A BALLOON, 2.5 X 15MM EUPHORA 15MM was inserted over WIRE, ASAHI PROWATER 180CM 180CM via t he LAD Prox. A BALLOON, 2.5 X 15MM EUPHORA 15MM over a WIRE, ASAHI PROWATER 180CM 180CM in the LAD Prox was inflated 10:14:29 using a 30 MICHEL INDEFLATOR at 12 michel for 15 sec. 10:15:38 Balloon Removed. A STENT, 2.25 12 RESOLUTE INTEGRITY RX 2.25 12 was advanced through a XBLAD 3.5 SH GUIDE CATHET ER FR 6 10:17:00 over a WIRE, ASAHI PROWATER 180CM 180CM. 10:17:11 0.8 mg NITROGLYCERIN S/L given in lab by Tanvi Bolanos RN via Sublingual. Ordered by Javier Manuel. A STENT, 2.25 12 RESOLUTE INTEGRITY RX 2.25 12 was deployed using a 30 MICHEL INDEFLATOR at 12 michel ospheres 10:18:14 for 15 seconds in the LAD Mid. 10:20:00 Delivery device removed 10:21:39 A BALLOON, 3.0 X 15MM EUPHORA 15MM was inserted over WIRE, ASAHI PROWATER 180CM 180CM via t he LAD Prox. A BALLOON, 3.0 X 15MM EUPHORA 15MM over a WIRE, ASAHI PROWATER 180CM 180CM in the LAD Prox was inflated 10:22:42 using a 30 MICHEL INDEFLATOR at 10 michel for 22 sec. 10:23:24 Balloon Removed. A BALLOON, 3.0 X 15MM NC EUPHORA 15MM was inserted over WIRE, ASAHI PROWATER 180CM 180CM via th e LAD 10:23:55 Prox. A BALLOON, 3.0 X 15MM NC EUPHORA 15MM over a WIRE, ASAHI PROWATER 180CM 180CM in the LAD Prox w as 10:25:34 inflated using a 30 MICHEL INDEFLATOR at 18 michel for 30 sec. 10:27:24 Balloon Removed. A STENT, 3.0 9 RESOLUTE INTEGRITY RX 3.0 9 was advanced through a XBLAD 3.5 SH GUIDE CATHETER FR 6 over a 10:30:11 WIRE, ASAHI PROWATER 180CM 180CM. A STENT, 3.0 9 RESOLUTE INTEGRITY RX 3.0 9 was deployed using a 30 MICHEL INDEFLATOR at 12 atmosp heres for 9 10:30:12 seconds in the LAD Prox. 10:30:14 Delivery device removed 10:31:30 An injection in the Fem Art (right) was made through the SHEATH, FR6.5 PRELUDE 11CM FR 6.5 . 10:32:35 ANGIOSEAL, FR6 VIP FR 6 placement in the Fem Art (right) 10:33:09 Case End 10:33:17 Sterile dressing applied to site 10:33:20 No case complications noted. 10:33:23 Cine recording checked. 10:33:37 HR=76 bpm, NCBK=179/92 mmhg, SpO2=94 %, Resp=13 B/min Assessment: Final Case, HR=74 BPM, Rhythm=sr, LBDH=658/92 mmhg, Chest Pain=0 Right Pulses: Jason Ped=2, Femoral=2 10:37:13 Left Pulses: Jason Ped=2, Femoral=2 Neurological: State=Alert, Ox3, MICHELLE Respiration: Resp=13 B/min, SpO2=95 % Vitals capture started with the following parameters, Patient=Adult, Interval=5 min, Initial P iwhujys=763 mmHg, 10:38:45 Deflation Rate=5 mmHg 10:39:10 HR=76 bpm, DGZX=021/92 mmhg, SpO2=94 %, Resp=13 B/min 10:39:11 Vitals capture stopped. 10:41:00 Patient moved to BED 10:41:08 Clinical correlaton risk stratification. 10:41:36 Patient transported to DOCU. End Study - Contrast Media Used In Study Contrast Total Opened (mL) Total Used (mL) Total Wasted (mL) Omnipaque 125 125 0 End Study - Maximum Contrast Load Max Contrast Load (mL) 406.8 End Study - Radiation Exposure Fluoro Time (minutes) 8.4 End Study - Sheaths Sheaths Pulled By Sheath Hold Time (min) Javier Ortiz End Study - Patient Disposition Complications Transferred To Interventional Outcome No Telemetry Bed successful
[2016-11-16] MEDS ORDERED: IOHEXOL 350 MG/ML 100 ML BTL (for Cath Lab) OTHER ONE (15:32)
--- NOTE | 2016-11-16 16:02 | MA ---
cc: FUNMI CALZADA MD DATE 11/16/2016 The patient was prepped, draped in the usual fashion. A ___ sheath was inserted percutaneously in the right femoral artery. Coronary angiography was done with Vivienne preformed catheters. RESULTS Aortic pressure was initially 170/90. This fell to 110/80 by the end of the procedure. CORONARY ANGIOGRAPHY Left main coronary was normal. The left anterior descending artery demonstrated two intraluminal stents in the proximal and midportions. The artery itself was totally occluded just at the origin of the first proximal stent. The left circumflex artery arose from the left main and was essentially normal throughout its course. The right coronary artery was anatomically dominant. No significant stenoses were seen. Collateralization of the distal LAD was seen by collaterals from the right coronary. Following consent heparin was administered with an ACT of 245 seconds. An XB LAD 3.5 guide was used to cannulate the left main and Friendsigniawater wire was advanced down the LAD across both stents into the distal portion of the artery. Initial balloon dilatation of the proximal stent was unsuccessful at restoring flow, despite multiple attempts. A 2.5 x 15 mm cutting balloon was then used with dilatation to 14 atmospheres. This restored flow but the mid stent still remained totally occluded. A second 2.25 x 8 mm cutting balloon was used on that stenosis again to 14 atmospheres with good cosmetic result. There was a high grade stenosis noted at the distal portion of the stent in the LAD compromising the lumen by approximately 90%. Sublingual nitroglycerin was administered with no change in the stenosis of the mid portion of the artery. A post dilatation was then done with a 2.5 balloon in the proximal lesion which really resulted in no significant change. A 2.25 x 9 mm drug-eluting stent was then deployed across the stenosis in the mid portion of the LAD to 10 atmospheres with an excellent cosmetic result and EDDY III flow following that. Attention was then redirected to the proximal stent and a 3.0 x 15 mm balloon was used for multiple inflations up to 14 atmospheres. This still did not result in a good cosmetic result. A second 3.0 x 15 mm noncompliant balloon was used with dilatation to 18 atmospheres with a good result. A 50% stenosis was noted still between the left main and the LAD. A 3.0 x 8 mm drug-eluting stent was then deployed at the ostium of the LAD and overlapped with the proximal stent to 10 atmospheres with an excellent cosmetic result and EDDY III flow noted throughout the artery. The equipment was withdrawn and hemostasis was achieved with Angio-Seal product. CONCLUSION Successful PTCA and stenting of two in-stent occlusions in the proximal and mid left anterior descending artery. MD LORENZA Bray/DANTE /10:45 AM /3:42 PM
== END 2016-11-16 15:17 | disposition home or self-care (01) ==
LOC: HDOC 07:29 → HDIC 07:30 → HDOC 15:17
PROVIDERS: ATTEND Internal Medicine Cardiovascular Disease
DX: R94.39 Abnormal result of other cardiovascular function study (principal); I10 Essential (primary) hypertension; E78.00 Pure hypercholesterolemia, unspecified; I25.10 Atherosclerotic heart disease of native coronary artery without angina pectoris
CPT/HCPCS: 85002; 92928; 93458; C1725; C1760; C1769; C1874; C1887; C1893; G0269; J1644; J2250; Q9967

== ENCOUNTER 2016-11-23 14:04 | Emergency (ER) | payer OTHER ==
[~2016-11-23] VITALS: Ht 152.4 cm; Wt 49.0 kg
[~2016-11-23 14:04] MED LIST changes: +ASPI1TAB69 PO; +ATOR40TA16 PO; +CALC1TAB87 PO; +NITR1SUB3 SL; -SIMV20TA PO; +magnesium PO
[2016-11-23 14:05] VITALS: BP 164/79; PULSE 76; RESP 20; TEMP 98; O2SAT 99
[2016-11-23 15:22] VITALS: BP 172/94; PULSE 87; RESP 18; TEMP 98; O2SAT 99
[2016-11-23 15:57] VITALS: BP 142/86; PULSE 74; RESP 18; O2SAT 96
--- NOTE | 2016-11-23 15:59 | RADRPT ---
EXAM DATE/TIME: 11/23/2016 15:39 [place] COMPARISON: No previous studies available for comparison. INDICATIONS : Short of breath, weakness MEDICAL HISTORY : None. SURGICAL HISTORY : Coronary artery stent. ENCOUNTER: Initial ACUITY: 1 day PAIN SCORE: 0/10 LOCATION: Bilateral chest FINDINGS: A single view of the chest demonstrates the lungs to be symmetrically aerated without evidence of mas s, infiltrate or effusion. The cardiomediastinal contours are unremarkable. Minimal parenchymal juno cification is present in the left base. Osseous structures are intact. CONCLUSION: No acute disease. Benjamín Estrella MD FACR on November 23, 2016 at 15:56 Board Certified Radiologist. This report was verified electronically.
[2016-11-23 16:14] LABS: BLOOD, URINE NEG (NEG); COMMENT (UR) CULT NOT INDICATED; CULTURE IF INDICATED CULT NOT INDICATED; GLUCOSE,URINE NEG (NEG); KETONE, URINE NEG (NEG); NITRITE,URINE NEG (NEG); URINE COLOR LIGHT-YELLOW (YELLW/STRAW)
[2016-11-23 16:17] LABS: AUTOMATED NEUTROPHIL # 2.5 TH/MM3 (1.8-7.7); BASOPHIL % 0.7 % (0.0-2.0); EOSINOPHIL % 1.1 % (0.0-4.0); HEMATOCRIT 43.2 % (35.0-46.0); HEMO FLAGS DIFF FINAL; LYMPH % 30.9 % (9.0-44.0); LYMPHOCYTE # 1.3 TH/MM3 (1.0-4.8); MEAN CELL VOLUME 83.3 FL (80.0-100.0); MEAN CORPUSCULAR HEMOGLOBIN 26.8 PG (27.0-34.0); MEAN CORPUSCULAR HGB CONC 32.2 % (32.0-36.0); MONO % 9.9 % (0.0-8.0); NEUT % 57.4 % (16.0-70.0); PLATELET COUNT 221 TH/MM3 (150-450); RED BLOOD COUNT 5.18 MIL/MM3 (4.00-5.30); RED CELL DISTRIBUTION WIDTH 13.9 % (11.6-17.2); WHITE BLOOD COUNT 4.4 TH/MM3 (4.0-11.0)
[2016-11-23 16:39] LABS: ALT (GPT) 53 U/L (10-53); ANION GAP 6 MEQ/L (5-15); AST (GOT) 22 U/L (15-37); BICARBONATE 33.4 MEQ/L (21.0-32.0); BLOOD UREA NITROGEN 11 MG/DL (7-18); CHLORIDE 100 MEQ/L (98-107); GLOMERULAR FILTRATION RATE 103 ML/MIN (>89); POTASSIUM 3.6 MEQ/L (3.5-5.1); SODIUM (NA) 139 MEQ/L (136-145)
[2016-11-23 16:48] LABS: ALKALINE PHOSPHATASE 81 U/L (45-117); TOTAL BILIRUBIN ADULT 0.4 MG/DL (0.2-1.0)
[2016-11-23 16:53] LABS: CREATINE KINASE 82 U/L (26-192)
[2016-11-23 17:00] VITALS: BP 194/86; PULSE 72; RESP 20; O2SAT 98
[2016-11-23] MEDS ORDERED: ISOS10TA3 PO ×2 (17:08→17:19)
--- NOTE | 2016-11-23 17:18 | PD ---
HPI Chief Complaint: General Weakness Time Seen by Provider: 15:20 Travel History International Travel<30 days: No Contact w/Intl Traveler<30days: No Traveled to known affect area: No History of Present Illness HPI 61-year-old female who status post cardiac stent placement last week, who presents today with complaints of generalized fatigue and mild shortness of breath. Patient denies any chest pain or pressure. She just states she feels general malaise. Patient also reports decreased appetite. She denies any other symptoms at this time. PFSH Past Medical History Hx Anticoagulant Therapy: Yes (PLAVIX) Blood Disorders: No Anxiety: Yes Cancer: No Cardiac Catheterization: Yes Cardiovascular Problems: Yes (HTN, STENTS) High Cholesterol: Yes Chest Pain: Yes Coronary Artery Disease: Yes Diminished Hearing: No Endocrine: No Genitourinary: No Hypertension: Yes Immune Disorder: No Respiratory: No Immunizations Current: No Tetanus Vaccination: Unknown Influenza Vaccination: Yes Menopausal: Yes Para: 3 Past Surgical History Coronary Stent: Yes (x 4) Tonsillectomy: Yes Social History Alcohol Use: Yes (occ) Tobacco Use: No Substance Use: No Allergies-Medications (Allergen,Severity, Reaction): Coded Allergies: Amoxicillin (Verified Allergy, Severe, 11/23/16) SAYS HER THROAT CLOSES Reported Meds & Prescriptions Reported Meds & Active Scripts Active Reported Atorvastatin (Atorvastatin Calcium) 40 Mg Tab 40 Mg PO HS Nitroglycerin SL (Nitroglycerin) 0.4 Mg Subl 0.4 Mg SL DIRECTED PRN ONE TABLET UNDER THE TONGUE NEEDED FOR CHEST PAIN, MAY REPEAT EVERY FIVE MINUTES FOR A TOTAL OF 3 DOSES OR CALL 911 IF NO RELIEF [magnesium] 200 Mg PO DAILY Calcium 600 with Vitamin D (Calcium Carbonate-Cholecalciferol) 600-400 mg-Unit Tab 1 Tab PO DAILY Aspirin 81 Mg Tabdr 81 Mg PO DAILY Metoprolol Tartrate 25 Mg Tab 25 Mg PO DAILY Plavix (Clopidogrel Bisulfate) 75 Mg Tab 75 Mg PO DAILY Hydrochlorothiazide 12.5 Mg Cap 12.5 Mg PO DAILY Benazepril (Benazepril HCl) 40 Mg Tab 40 Mg PO DAILY Xanax (Alprazolam) 0.25 Mg Tab 0.25 Mg PO Q8H PRN Review of Systems Except as stated in HPI: all other systems reviewed are Neg General / Constitutional: No: Fever, Chills HENT: No: Headaches Cardiovascular: No: Chest Pain or Discomfort, Palpitations Respiratory: Positive: Shortness of Breath, No: Cough Gastrointestinal: No: Nausea (mild), Vomiting, Abdominal Pain Genitourinary: No: Frequency, Dysuria Musculoskeletal: Positive: Weakness, No: Pain Neurologic: Positive: Weakness (generalized), No: Dizziness, Ataxia, Headache , Change in Mentation Physical Exam Narrative GENERAL: Well-developed well-nourished female in no acute respiratory distress. SKIN: Focused skin assessment warm/dry. HEAD: Atraumatic. Normocephalic. EYES: No scleral icterus. No injection or drainage. ENT: No nasal bleeding or discharge. Mucous membranes pink and moist. NECK: Trachea midline. No JVD. Supple. CARDIOVASCULAR: Regular rate and rhythm. No murmur appreciated. RESPIRATORY: No accessory muscle use. Clear to auscultation. Breath sounds equal bilaterally. GASTROINTESTINAL: Abdomen soft, non-tender, nondistended. MUSCULOSKELETAL: No obvious deformities. No clubbing. No cyanosis. No edema. NEUROLOGICAL: Awake and alert. No obvious cranial nerve deficits. Motor grossly within normal limits. Normal speech. Data Data Last Documented VS Vital Signs Date Time Temp Pulse Resp B/P Pulse Ox O2 Delivery O2 Flow Rate FiO2 11/23/16 15:57 74 18 142/86 96 Nasal Cannula 2 11/23/16 15:22 98.0 Orders Electrocardiogram (11/23/16 ) Complete Blood Count With Diff (11/23/16 15:40) Comprehensive Metabolic Panel (11/23/16 15:40) Ckmb (Isoenzyme) Profile (11/23/16 15:40) Troponin I (11/23/16 15:40) Urinalysis - C+S If Indicated (11/23/16 15:40) Thyroid Stimulating Hormone (11/23/16 15:40) Chest, Single Ap (11/23/16 15:40) Iv Access Insert/Monitor (11/23/16 15:40) Ecg Monitoring (11/23/16 15:40) Oximetry (11/23/16 15:40) Labs Laboratory Tests Test 11/23/16 11/23/16 15:25 15:48 White Blood Count 4.4 TH/MM3 Red Blood Count 5.18 MIL/MM3 Hemoglobin 13.9 GM/DL Hematocrit 43.2 % Mean Corpuscular Volume 83.3 FL Mean Corpuscular Hemoglobin 26.8 PG Mean Corpuscular Hemoglobin 32.2 % Concent Red Cell Distribution Width 13.9 % Platelet Count 221 TH/MM3 Mean Platelet Volume 7.9 FL Neutrophils (%) (Auto) 57.4 % Lymphocytes (%) (Auto) 30.9 % Monocytes (%) (Auto) 9.9 % Eosinophils (%) (Auto) 1.1 % Basophils (%) (Auto) 0.7 % Neutrophils # (Auto) 2.5 TH/MM3 Lymphocytes # (Auto) 1.3 TH/MM3 Monocytes # (Auto) 0.4 TH/MM3 Eosinophils # (Auto) 0.0 TH/MM3 Basophils # (Auto) 0.0 TH/MM3 CBC Comment DIFF FINAL Differential Comment Sodium Level 139 MEQ/L Potassium Level 3.6 MEQ/L Chloride Level 100 MEQ/L Carbon Dioxide Level 33.4 MEQ/L Anion Gap 6 MEQ/L Blood Urea Nitrogen 11 MG/DL Creatinine 0.59 MG/DL Estimat Glomerular Filtration 103 ML/MIN Rate Random Glucose 79 MG/DL Calcium Level 9.7 MG/DL Total Bilirubin 0.4 MG/DL Aspartate Amino Transf 22 U/L (AST/SGOT) Alanine Aminotransferase 53 U/L (ALT/SGPT) Alkaline Phosphatase 81 U/L Total Creatine Kinase 82 U/L Troponin I LESS THAN 0.02 NG/ML Total Protein 8.1 GM/DL Albumin 4.3 GM/DL Thyroid Stimulating Hormone 1.660 uIU/ML 3rd Gen Urine Color LIGHT-YELLOW Urine Turbidity CLEAR Urine pH 7.0 Urine Specific Holman 1.004 Urine Protein NEG mg/dL Urine Glucose (UA) NEG mg/dL Urine Ketones NEG mg/dL Urine Occult Blood NEG Urine Nitrite NEG Urine Bilirubin NEG Urine Urobilinogen LESS THAN 2.0 MG/DL Urine Leukocyte Esterase NEG Urine WBC LESS THAN 1 /hpf Microscopic Urinalysis Comment CULT NOT INDICATED MDM Medical Decision Making Medical Screen Exam Complete: Yes Emergency Medical Condition: Yes Differential Diagnosis Recurrent ACS versus medication reaction versus elect to light abdomen versus anemia Narrative Course 61-year-old female who status post cardiac stent placement last week, presents today with complaints of generalized weakness and malaise. The patient denies any chest pain chest pressure. She had mild shortness of breath, decreased appetite and just generally feeling weak. The patient's EKG shows no evidence of acute ST elevation or depression. The patient's cardiac enzymes are within normal limits. The rest of her laboratory tests show no acute findings. This included a TSH level. I discussed the case with Dr. Javier Ortiz, patient's software sales executive, who agreed to talk with the patient. He had a bedside discussion with her and recommended we start her on isosorbide mononitrate 30 mg daily. He will see her in the office. Diagnosis Primary Impression: Generalized weakness Additional Impressions: Coronary artery disease status post coronary artery stent placement one week prior Referrals: Javier Ortiz MD Additional Instructions: Take medication as prescribed. Follow up with Dr. Ortiz within one to 2 weeks. Med/Other Pt SpecificInfo: Prescription(s) given Disposition: 01 DISCHARGE HOME Condition: Stable Thong Louie MD November 23, 2016 17:18
[2016-11-23 18:22] VITALS: BP 161/86; PULSE 73; RESP 18; O2SAT 96
[2016-11-23 18:36] VITALS: BP 147/78
--- NOTE | 2016-11-24 14:57 | EKG ---
Date Performed: 11/23/2016 Time Performed: 15:25:51 PTAGE: 61 years EKG: Sinus rhythm NORMAL ECG Compared to prior tracing previously seen anterior T wave abnormalities have resolved PREVIOUS TRACING : 08/03/2016 22.25 DOCTOR: Hemant Jett Interpretating Date/Time 11/24/2016 14:55:32
== END 2016-11-23 18:47 | disposition home or self-care (01) ==
LOC: NEPC 14:04
DX: R53.1 Weakness (principal); I25.10 Atherosclerotic heart disease of native coronary artery without angina pectoris; I10 Essential (primary) hypertension; E78.00 Pure hypercholesterolemia, unspecified; Z95.5 Presence of coronary angioplasty implant and graft; Z79.01 Long term (current) use of anticoagulants
CPT/HCPCS: 71010; 80053; 81001; 82550; 84443; 84484; 85025; 93005